=== PATIENT | female | born 1985 | race Caucasian/White ===

== ENCOUNTER → 2021-09-25 14:00 | Outpatient (BNVA) | payer OTHER, SELFPAY | PROVIDERS: Family Provider Nurse Practitioner Family; Visit Provider Nurse Practitioner Family | DX: Z20.822 Contact with and (suspected) exposure to COVID-19 (principal) | CPT/HCPCS: 87426 ==

== ENCOUNTER → 2021-09-26 13:43 | Outpatient (BNVA) | payer OTHER, SELFPAY | PROVIDERS: Family Provider Nurse Practitioner Family; Visit Provider Nurse Practitioner Family | DX: Z20.822 Contact with and (suspected) exposure to COVID-19 (principal) | CPT/HCPCS: 87635 ==

== ENCOUNTER 2021-10-02 08:29 | Outpatient (CLI) | payer SELFPAY ==
[2021-10-02 08:33] VITALS: BP 120/80; PULSE 87; RESP 16; TEMP 36.6; O2SAT 99; BMI 33.8
[2021-10-02 09:15] VITALS: BP 119/83; PULSE 79; RESP 20; TEMP 36.8; O2SAT 99
[2021-10-02 10:15] VITALS: BP 119/80; PULSE 84; RESP 17; TEMP 36.8; O2SAT 99
== END 2021-10-02 08:30 | disposition home or self-care (01) ==
LOC: OPS 08:33
PROVIDERS: PCP Family Medicine; Visit Provider Nurse Practitioner Family
DX: U07.1 COVID-19 (principal)
CPT/HCPCS: 96365

== ENCOUNTER 2022-07-22 07:35 | Emergency (ER) | payer OTHER, SELFPAY ==
[2022-07-22 07:37] VITALS: BP 120/84; PULSE 85; RESP 16; TEMP 36.3; O2SAT 99; BMI 31.1
[2022-07-22 08:02] VITALS: BP 120/84; PULSE 85; RESP 16; TEMP 36.3; O2SAT 99
--- NOTE | 2022-07-22 08:12 | ED_ITS ---
HPI - Abdominal Pain General: Chief Complaint: Abdominal Pain Stated Complaint: Abd pain Time Seen by Provider: 07/22/22 07:39 Source: patient Mode of arrival: ambulatory History of Present Illness: 37-year-old female presents emergency room with sudden onset of right lower quadrant pain radiating to her back. She was sitting in [place] and suddenly had pain. She denies any hematuria no dysuria urgency or frequency no vomiting no diarrhea. MD elicited complaint: abdominal pain Pertinent past history: none Onset (ago): minute(s) Pain Consistency: constant Location: None Severity: mild Quality: cramping Radiation: RLQ Exacerbating factors: nothing Relieving factors: nothing Associated Symptoms: Reports bloating; Denies anorexia, belching, change in bowel habits, change in stool character, chills, coffee ground emesis, constipation, GI cramping, diarrhea, dyspepsia, dysuria, excessive flatus, fever(s), heartburn, hematochezia, hematuria, hematemesis, fecal incontinence, loose stools, melena, nausea, poor appetite, syncope and vomiting Review of Systems Const: Denies: fever(s) or chills Card: Denies: syncope GI: Reports: bloating; Denies: nausea, vomiting, hematemesis, coffee ground emesis, heartburn, diarrhea, constipation, GI cramping, belching, excessive flatus, fecal incontinence, change in bowel habits, change in stool character, hematochezia or melena : Denies: flank pain, difficulty voiding, dysuria, urinary frequency, urin leticia urgency or hematuria Musc: Denies: neck pain or back pain PFSH ED PFSH: Medical History Asthma Depression Urolithiasis Family History (Updated 08/01/22 @ 09:11 by Ana Barker LPN) Mother No problems noted. Father Hypertension Diabetes Social History (Updated 08/01/22 @ 09:11 by Ana Barker LPN) Smoking and tobacco status: never smoked Alcohol intake: current Alcohol intake frequency: holidays/special occasions only Marital status: Current occupational status: employed History of recent travel: No Physical Exam Const: COMMON NORMALS: no acute distress GENERAL APPEARANCE: cooperative and comfortable ORIENTATION/CONSCIOUSNESS: Yes awake, Yes oriented to person, Yes oriented to place and Yes oriented to time HENMT: COMMON NORMALS: normocephalic, atraumatic and hearing grossly normal bilaterally HEAD & SCALP: normocephalic and atraumatic Eye: COMMON NORMALS: Equal, round and reactive pupils present, EOMs intact bilaterally, conjunctivae normal and no scleral icterus CONJUNCTIVA: Yes conjunctivae normal PUPIL: Yes Equal, round and reactive pupils present Resp: COMMON NORMALS: normal respiratory effort, No retractions, No use of accessory muscles and clear to auscultation bilaterally AUSCULTATION: clear to auscultation bilaterally Cardio: COMMON NORMALS: regular rate, regular rhythm and No murmurs present (Cardio) RATE: regular rate RHYTHM: regular rhythm GI: COMMON NORMALS: Soft to palpation and No hepatosplenomegaly present AUSCULTATION: Yes normoactive bowel sounds PALPATION: Yes Soft to palpation, No Tenderness to palpation present (GI), No Guarding due to palpation present (GI) and Yes No hepatosplenomegaly present Extremity: COMMON NORMALS: normal to inspection, capillary refill normal, no clubbing, cyanosis or edema, no calf tenderness and no pedal edema Neuro: SENSORIUM/ORIENTATION: Yes oriented to person, Yes oriented to place and Yes oriented to time Skin: COMMON NORMALS: no rashes or lesions noted GENERAL SKIN EXAM: no rashes or lesions noted Course Vital Signs: Vital signs: Vital Signs Temperature 97.4 F L 07/22/22 08:02 Pulse Rate 85 07/22/22 08:02 Respiratory Rate 19 H 07/22/22 10:47 Blood Pressure 120/84 07/22/22 08:02 Pulse Oximetry 99 07/22/22 08:02 Oxygen Delivery Wa thod 07/22/22 08:02 MDM - Abdominal Pain Medical Decision Making Right nephrolithiasis discharge home with pain medications. Follow-up with urology strain urine to catch stone return if is further problems. No sign of infection antibiotics not indicated at this time. Medical Records I reviewed the patient's medical records. Lab Data I reviewed the patient's lab results. 07/22/22 08:00 07/22/22 08:00 Labs/Radiology: Radiology Impressions Pelvis Ultrasound 07/22/22 08:32 IMPRESSION: Unremarkable pelvic transvaginal ultrasound. Transvaginal US 07/22/22 08:32 IMPRESSION: Unremarkable pelvic transvaginal ultrasound. Abdomen/Pelvis CT 07/22/22 09:16 IMPRESSION: 1. Mild right hydronephrosis and ureterectasis with a right ureterovesicular junction 2 x 2 x 3 mm calculus (series 4, image 182 and series 6, image 65)-at the level of the hip joint. 2. Left kidney mid zone and lower pole calculi, as noted above. No left hydronephrosis or ureterectasis. 3. Suspected gallstones with nitrogen content. Laboratory Results WBC 4.3 10^3/uL (4.0-10.0) 07/22/22 08:00 RBC 4.60 10^6/uL (4.1-5.3) 07/22/22 08:00 Hgb 14.7 g/dL (11.5-15.3) 07/22/22 08:00 Hct 43.0 % (37.0-47.0) 07/22/22 08:00 MCV 93.5 fl (81-99) 07/22/22 08:00 MCH 32.0 pg (28.0-34.0) 07/22/22 08:00 MCHC 34.2 g/dL (30.0-36.0) 07/22/22 08:00 RDW 12.0 % (12.1-15.1) L 07/22/22 08:00 Plt Count 250 10^3/cmm (130-400) 07/22/22 08:00 MPV 10.2 fL (7.4-10.4) 07/22/22 08:00 Neut % (Auto) 47.4 % 07/22/22 08:00 Lymph % (Auto) 31.9 % 07/22/22 08:00 Isabella % (Auto) 11.2 % 07/22/22 08:00 Eos % (Auto) 7.9 % 07/22/22 08:00 Baso % (Auto) 1.4 % 07/22/22 08:00 Neut # (Auto) 2.03 10^3/uL (1.8-7.7) 07/22/22 08:00 Lymph # (Auto) 1.4 10^3/uL (0.8-4.8) 07/22/22 08:00 Isabella # (Auto) 0.5 10^3/uL (0.2-0.9) 07/22/22 08:00 Eos # (Auto) 0.3 10^3/uL (0.0-0.8) 07/22/22 08:00 Baso # (Auto) 0.1 10^3/uL (0.0-0.1) 07/22/22 08:00 Nucleated RBC % (auto) 0 % 07/22/22 08:00 Nucleated RBCs # 0.0 /100WBC 07/22/22 08:00 Sodium 135 mmol/L (136-145) L 07/22/22 08:00 Potassium 4.0 mmol/L (3.5-5.1) 07/22/22 08:00 Chloride 100 mmol/L (98-107) 07/22/22 08:00 Carbon Dioxide 24 mmol/L (22-29) 07/22/22 08:00 Anion Gap 15.0 (5-19) 07/22/22 08:00 BUN 8 mg/dL (6-20) 07/22/22 08:00 Creatinine 0.7 mg/dL (0.5-0.9) 07/22/22 08:00 GFR Calculation 95.2 mL/min (90-130) 07/22/22 08:00 Glucose 106 mg/dL (65-115) 07/22/22 08:00 Calculated Osmolality 279 mOsm/kg (285-295) L 07/22/22 08:00 Calcium 9.3 mg/dL (8.5-10.5) 07/22/22 08:00 Total Bilirubin 0.4 mg/dL (0.15-1.2) 07/22/22 08:00 AST 22 U/L (0-32) 07/22/22 08:00 ALT 13 U/L (0-33) 07/22/22 08:00 Alkaline Phosphatase 90 U/L (35-105) 07/22/22 08:00 Total Protein 7.2 g/dL (6.6-8.7) 07/22/22 08:00 Albumin 4.5 g/dL (3.5-5.2) 07/22/22 08:00 Globulin 2.7 g/dL (1.3-4.6) 07/22/22 08:00 Lipase 47 U/L (13-60) 07/22/22 08:00 HCG, Qual Negative (Negative) 07/22/22 08:00 Urine Color Yellow (Yellow) 07/22/22 08:08 Urine Appearance Sl hazy (CLEAR) A 07/22/22 08:08 Urine pH 7 (5-7) 07/22/22 08:08 Ur Specific [place] 1.015 (1.005-1.030) 07/22/22 08:08 Urine Protein Neg (Negative) 07/22/22 08:08 Urine Glucose (UA) Norm (Normal) 07/22/22 08:08 Urine Ketones Negative (Negative) 07/22/22 08:08 Urine Blood 3+ (Negative) H 07/22/22 08:08 Urine Nitrate Negative (Negative) 07/22/22 08:08 Urine Bilirubin Neg (Negative) 07/22/22 08:08 Urine Urobilinogen Norm mg/dL (Negative) 07/22/22 08:08 Ur Leukocyte Esterase Negative (Negative) 07/22/22 08:08 Urine RBC 10-15 /hpf (0-2) H 07/22/22 08:08 Urine WBC None /hpf (0-5) 07/22/22 08:08 Ur Squamous Epith Cells 0-4 /hpf (0-5) H 07/22/22 08:08 Amorphous Sediment Not Reportable 07/22/22 08:08 Urine Bacteria Trace /hpf (NONE) 07/22/22 08:08 Urine Mucus Trace /hpf 07/22/22 08:08 Discharge Plan Discharge Patient Disposition: Home Clinical Impression: Right nephrolithiasis Prescriptions: New hydrocodone-acetaminophen 5-325 mg tablet 1 tab PO Q6H PRN (Reason: pain) Qty: 20 0RF tamsulosin 0.4 mg capsule 0.4 mg PO DAILY Qty: 14 0RF No Action budesonide-formoterol [Symbicort] 160-4.5 mcg/actuation HFA aerosol inhaler 2 puff inhalation BID albuterol sulfate 90 mcg/actuation HFA aerosol inhaler 1 inh inhalation QID dextroamphetamine-amphetamine [Adderall XR] 20 mg capsule,extended release 24hr 20 mg PO DAILY prednisone 20 mg tablet 40 mg PO DAILY PRN buspirone 5 mg tablet 5 mg PO TID Vyvanse 40 mg capsule 40 mg PO BID Pristiq 50 mg Tablet Extended Release 24 Hr 50 mg PO DAILY gabapentin 300 mg Capsule 300 mg PO TID Discharge Orders: Discharge ED (Routine); Ordered 07/22/22 Ordered By: Ruben Greenwood Discharge Diet: Usual diet Discharge Activity: Increase activity as tolerated Activity Restrictions/Additional Instructions: Strain urine to collect stone. Case management make arranges to follow-up with urology. Coding Level of Care Code ED Import Manager for Chg Fwd Exam Comprehensive
[2022-07-22 08:18] LABS: HCG, Serum Qual Negative (Negative)
[2022-07-22 08:23] LABS: Basophils # 0.1 10^3/uL (0.0-0.1); Basophils % 1.4 %; Eosinophils # 0.3 10^3/uL (0.0-0.8); Eosinophils % 7.9 %; Hemoglobin 14.7 g/dL (11.5-15.3); Lymphocytes # 1.4 10^3/uL (0.8-4.8); Lymphocytes % 31.9 %; Mean Corpuscular HGB Conc 34.2 g/dL (30.0-36.0); Mean Corpuscular Volume 93.5 fl (81-99); Mean Platelet Volume 10.2 fL (7.4-10.4); Monocytes # 0.5 10^3/uL (0.2-0.9); Monocytes % 11.2 %; Neutrophils # 2.03 10^3/uL (1.8-7.7); Neutrophils % 47.4 %; Nucleated Red Blood Cells % 0 %; Platelet Count 250 10^3/cmm (130-400); White Blood Count 4.3 10^3/uL (4.0-10.0)
[2022-07-22 08:25] LABS: Alanine Aminotransferase 13 U/L (0-33); Albumin Level 4.5 g/dL (3.5-5.2); Alkaline Phosphatase 90 U/L (35-105); Aspartate Amino Transferase 22 U/L (0-32); Blood Urea Nitrogen 8 mg/dL (6-20); Calcium 9.3 mg/dL (8.5-10.5); Carbon Dioxide 24 mmol/L (22-29); Chloride 100 mmol/L (98-107); Creatinine Clr Calc Pharmacy 107.8515; Globulin 2.7 g/dL (1.3-4.6); Glomerular Filtration Rate 95.2 mL/min (90-130); Glucose 106 mg/dL (65-115); Lipase 47 U/L (13-60); Osmolality Calculated 279 mOsm/kg (285-295); Sodium 135 mmol/L (136-145); Total Bilirubin 0.4 mg/dL (0.15-1.2); Total Protein 7.2 g/dL (6.6-8.7)
--- NOTE | 2022-07-22 08:32 | USR_ITS ---
PROCEDURE INFORMATION: Exam: US Nonobstetric Pelvis; Complete Exam date and time: 07/22/2022 9:00 AM Age: 37 years old Clinical indication: Pelvic pain; Prior surgery; Surgery date: 6+ months; Patient HX: Tubal ligation; Additional info: R pelvic pain TECHNIQUE: Imaging protocol: Transabdominal pelvic nonobstetric ultrasound. Complete exam. Real time ultrasound with image documentation. COMPARISON: No relevant prior studies available. FINDINGS: Uterus: The transvaginal images of the pelvis show the anteverted uterus measures 7.7 x 4.5 x 5 cm in size. There is normal parenchymal echotexture. The endometrial stripe measures 0.5 cm. Right ovary/adnexa: The right ovary measures 2.9 x 1.6 x 1.5 cm. Some physiologic subcentimeter follicles are seen. No mass. Color Doppler flow demonstrated on Doppler imaging at the time of the exam. Left ovary/adnexa: The left ovary measures 3.1 x 1.5 x 2.4 cm. Some physiologic subcentimeter follicles are seen. No mass. Color Doppler flow demonstrated on Doppler imaging at the time of the exam. Intraperitoneal space: No free fluid demonstrated in the pelvis. US/US pelvic complete* [id number] IMPRESSION: Unremarkable pelvic transvaginal ultrasound.
[2022-07-22 08:40] LABS: Urine Appearance SL Hazy (CLEAR); Urine Color Yellow (Yellow); pH Urine 7 (5-7)
[2022-07-22 08:41] LABS: Add Urine Culture? Yes; Add Urine Microscopic? YES; Bacteria Urine TRACE /hpf; Bilirubin Urine Neg (Negative); Blood Urine 3+ (Negative); Glucose Urine UA Norm (Normal); Ketones Urine Negative (Negative); Leukocyte Esterase Urine Negative (Negative); Mucus Urine TRACE /hpf; Nitrate Urine Negative (Negative); Protein Urine Neg (Negative); Specific Gravity, Urine 1.015 (1.005-1.030); Squamous Epithelial Cell Urine 0-4 /hpf (0-5); Urobilinogen Urine Norm (Negative)
[2022-07-22] MEDS: HYDROcodone-acetaminophen 5-325 mg Tablet 2 TAB PO (08:41)
--- NOTE | 2022-07-22 09:16 | CTR_ITS ---
PROCEDURE INFORMATION: Exam: CT Abdomen And Pelvis Without Contrast Exam date and time: 07/22/2022 9:34 AM Age: 37 years old Clinical indication: Other: Hematuria; Prior surgery; Surgery date: 6+ months TECHNIQUE: Imaging protocol: Computed tomography of the abdomen and pelvis without contrast. Radiation optimization: All CT scans at this facility use at least one of these dose optimization techniques: automated exposure control; mA and/or kV adjustment per patient size (includes targeted exams where dose is matched to clinical indication); or iterative reconstruction. COMPARISON: US pelvic complete* [id number] 07/22/2022 9:00 AM RADIATION DOSE METRICS: Total DLP (mGy-cm): 642.78 FINDINGS: Lungs: The visualized portions of the lung bases are normal. Liver: Appears unremarkable on the non-contrast CT. Gallbladder and bile ducts: Some small low-attenuation areas are seen in the gallbladder, suggestive of gallstones with nitrogen content. No biliary ductal dilatation. Pancreas: Appears unremarkable on the non-contrast CT. No ductal dilation. Spleen: Appears unremarkable on the non-contrast CT. No splenomegaly. Adrenal glands: Normal. No mass. Kidneys and ureters: Left kidney mid zone 1 x 1 mm calculus is seen. Left kidney lower pole 2 x 3 mm calculus is seen. No left hydronephrosis, ureterectasis or ureteral calculi. Mild right hydronephrosis and ureterectasis with a right ureterovesicular junction 2 x 2 x 3 mm calculus (series 4, image 182 and series 6, image 65)-at the level of the hip joint. Stomach and bowel: The noncontrast opacified stomach appears unremarkable. The noncontrast opacified loops of small bowel in the abdomen and pelvis appear unremarkable. The noncontrast opacified loops of colon in the abdomen and pelvis show mild constipation. The lack of orally administered contrast material limits bowel assessment. Appendix: No evidence of appendicitis. Intraperitoneal space: No abdominal ascites. No free air. Some benign phleboliths seen in the pelvis. Vasculature: No abdominal aortic aneurysm. Lymph nodes: No enlarged lymph nodes. Urinary bladder: No bladder debris. No wall thickening. Reproductive: Unremarkable as visualized. Bones/joints: No acute osseous abnormalities seen. Soft tissues: Unremarkable. CT/CT kidney stone [id number] IMPRESSION: 1. Mild right hydronephrosis and ureterectasis with a right ureterovesicular junction 2 x 2 x 3 mm calculus (series 4, image 182 and series 6, image 65)-at the level of the hip joint. 2. Left kidney mid zone and lower pole calculi, as noted above. No left hydronephrosis or ureterectasis. 3. Suspected gallstones with nitrogen content.
[2022-07-22 10:34] VITALS: RESP 19
[2022-07-22] MEDS: morphine 4 mg/mL SDV 1 mL IVP (10:34)
[2022-07-22] MEDS: ondansetron 2 mg/ML SDV 2 mL 4 MG IVP (10:35)
[2022-07-22 10:47] VITALS: RESP 19
--- NOTE | 2022-07-23 08:18 | PC.SOCIAL ---
Addendum entered by Lotus Owen 08/29/22 14:12: Patient had follow up appointment with urology - patient did attend appointment Original Note: Urology Referral Consults received for Urology follow-up. Referral sent at this time. Clinic to contact patient with appt date/time.
== END 2022-07-22 10:50 | disposition home or self-care (01) ==
PROVIDERS: Emergency Provider Family Medicine
DX: N20.0 Calculus of kidney (principal)
CPT/HCPCS: 74176; 76830; 76856; 80053; 81001; 83690; 84703; 85025; 87086; 96374; 96375; 99285; J2270; J2405

== ENCOUNTER 2022-08-01 08:01 | Outpatient (CLI) | payer OTHER, SELFPAY ==
--- NOTE | 2022-08-01 08:37 | XRR_ITS ---
PROCEDURE INFORMATION: Exam: XR Abdomen Exam date and time: 08/01/2022 8:43 AM Age: 37 years old Clinical indication: Condition or disease; Kidney or ureter condition; Calculus (stone) in kidney; Prior surgery; Surgery type: Uterus; Additional info: Stones, kub amanda 08/01/22 @ 7:30 am appt to follow TECHNIQUE: Imaging protocol: Radiologic exam of the abdomen. Views: Frontal supine view of the abdomen. 1 View. COMPARISON: CT kidney stone [id number] 07/22/2022 9:34 AM FINDINGS: Gastrointestinal tract: Normal. No bowel dilation. Bones/joints: Unremarkable. XR/XR KUB [id number] IMPRESSION: No acute findings.
== END 2022-08-01 08:02 | disposition home or self-care (01) ==
LOC: RAD 08:03
PROVIDERS: Visit Provider Urology
DX: N20.0 Calculus of kidney (principal)
CPT/HCPCS: 74018; 81003